=== PATIENT | male | born 1970 | race Hispanic/Latino ===

== ENCOUNTER 2019-01-15 07:33 | Emergency (ER) | payer SELFPAY ==
[2019-01-15] MEDS ORDERED: Dexamethasone 4 mg/ml Vial ONE (08:42)
[2019-01-15] MEDS ORDERED: Ibuprofen 800 MG TAB ONE (08:42)
== END 2019-01-15 09:05 | disposition home or self-care (01) ==
LOC: ERS 07:33
DX: J02.9 Acute pharyngitis, unspecified (principal)
CPT/HCPCS: 87081; 87430; 99283; J1100

== ENCOUNTER 2019-01-21 17:53 | Emergency (ER) | payer BC, SELFPAY ==
[2019-01-21] MEDS ORDERED: diphenhydrAMINE 25 MG CAP ONE (18:13)
[2019-01-21] MEDS ORDERED: Famotidine 20 MG TAB ONE (18:13)
[2019-01-21] MEDS ORDERED: Dexamethasone 10 MG/ML VIAL ONE (18:14)
== END 2019-01-21 18:21 | disposition home or self-care (01) ==
LOC: ERS 17:53
DX: T78.40XA Allergy, unspecified, initial encounter (principal)
CPT/HCPCS: 99282; J1100; Q0163

== ENCOUNTER 2023-06-17 16:56 | Emergency (ER) | payer SELFPAY ==
[2023-06-17] MEDS ORDERED: Ketorolac Tromethamine 30 MG/ML VIAL ONE (18:20)
[2023-06-17 18:35] LABS: #Basophils 0.1 thou/uL (0.0-0.2); #Eosinphils 0.3 thou/uL (0.0-0.7); #Monocytes 0.6 thou/uL (0.11-0.59); #Neutrophils 6.6 thou/uL (1.40-6.50); %Basophils 0.6 % (0.0-1.0); %Eosinophils 3.2 % (0.0-10.0); %Lymphocytes 18.5 % (21.0-51.0); %Monocytes 6.7 % (0.0-10.0); %Neutrophils 70.7 % (42.0-75.0); Hematocrit 47.7 % (42.0-52.0); Hemoglobin 16.7 g/dL (14.0-18.0); Mean Corpuscular Hemoglobin 30.9 pg (27.0-31.0); Mean Corpuscular Volume 88.3 fl (78.0-98.0); Mean Platelet Volume 11.4 fL (7.4-10.4); Platelet Count 184 10x3/uL (130-400); RBC Distribution Width 12.8 % (11.5-14.5); White Blood Cell (WBC) Count 9.4 10x3/uL (4.8-10.8)
[2023-06-17 19:07] LABS: ALT (SGPT) 16 U/L (8-55); AST (SGOT) 11 U/L (5-34); Albumin 4.3 g/dL (3.5-5.0); Alkaline Phosphatase 207 U/L (40-110); Anion Gap 13 mmol/L (10-20); BUN (Urea Nitrogen) 19 mg/dL (8.4-25.7); Bilirubin, Total 0.3 mg/dL (0.2-1.2); Calc. Creatinine Clearance 0 mL/min (70-130); Calcium 9.6 mg/dL (7.8-10.44); Carbon Dioxide 22 mmol/L (22-29); Chloride 104 mmol/L (98-107); Estimated GFR 83; Glucose 312 mg/dL (70-105); Lipase 36 U/L (8-78); Protein, Total 7.3 g/dL (6.0-8.3); Sodium 135 mmol/L (136-145)
[2023-06-17 19:08] LABS: Troponin I Less than 0.010 ng/mL (< 0.028)
[2023-06-17 19:34] LABS: Bacteria/HPF None Seen HPF (None Seen); Bilirubin Negative (Negative); Blood, Urine Negative (Negative); CAUTI Indications for Culture Pelvic or flank pain; Clarity Clear (Clear); Glucose, Urine (Dipstick) Greater than 1000 mg/dL (Negative); Ketone, Urine Negative (Negative); Leukocyte Negative Leu/uL (Negative); Nitrite Negative (Negative); Protein, Urine (Dipstick) Negative (Neg-Trace); RBC/HPF None Seen HPF (0-3); Specific Gravity, Urine 1.039 (1.002-1.036); Squamous Epithelial None Seen HPF (0-3); Urobilinogen Normal mg/dL (Less than 2); WBC/HPF 0-3 HPF (0-3)
[2023-06-17 19:36] LABS: Urine Culture Reflex No No
[2023-06-17 20:04] LABS: SARS-CoV-2 NAA Rapid Test Not Detected (NotDetected)
== END 2023-06-17 20:24 | disposition home or self-care (01) ==
LOC: ERS 16:56
DX: B34.9 Viral infection, unspecified (principal); R07.89 Other chest pain; I10 Essential (primary) hypertension; E11.9 Type 2 diabetes mellitus without complications; F17.210 Nicotine dependence, cigarettes, uncomplicated; Z20.822 Contact with and (suspected) exposure to COVID-19
CPT/HCPCS: 36415; 71045; 80053; 81001; 83605; 83690; 84484; 85025; 85379; 87040; 93005; 96374; J1885